=== PATIENT | female | born 1950 | race Caucasian/White ===

== ENCOUNTER 2023-12-23 08:00 | Day surgery (SDC) | payer MEDICARE, OTHER ==
[~2023-12-23] VITALS: Ht 167.6 cm; Wt 83.0 kg
[~2023-12-23 08:00] MED LIST: ATOR10 PO; Balanced Salt Epinephrine Irrigation Solution 500 mL IR SCH; HUMIRA40 MG/0.2 INJ; Lidocaine HCl/Pf 1% 5 ML VIAL XX SCH; METTREX2.5 PO; Moxifloxacin HCL 0.5 MG/0.1 ML 0.4MLSYR LEFTEYE SCH; NAPR220; NORT10 PO; NS 500 ML IV ONE; PHENYLEPHRINE\\TROPICAMIDE\\TETRACAINE OPHTHALMIC DILATING SOLN LEFTEYE PRN; Povidone-Iodine 450 DROP/30 ML Solution LEFTEYE SCH; Povidone-Iodine 450 DROP/30 ML Solution ONE; Triamcinolone Inj Susp 40 MG / ML 1ML Vial INJ SCH; Triamcinolone Inj Susp 40 MG / ML 1ML Vial ONE
[2023-12-23] MEDS ORDERED: VITAMIN D (08:46)
[2023-12-23] MEDS ORDERED: ASCO500 (08:46)
[2023-12-23] MEDS ORDERED: BUPR150ER PO (08:47)
[2023-12-23] MEDS ORDERED: CALCIUM (08:47)
[2023-12-23] MEDS ORDERED: OMEP20ER PO (08:48)
[2023-12-23] MEDS ORDERED: NS 500 ML IV ONE (08:55)
[2023-12-23] MEDS ORDERED: FentaNYL Citrate 50 MCG/ML 2 ML Injection ONE (09:02)
[2023-12-23] MEDS ORDERED: Ondansetron HCl 2 MG / ML 2ML Vial ONE (09:03)
[2023-12-23] MEDS ORDERED: Dexamethasone Sod Phos 10 MG/ML 1ML VIAL ONE (09:03)
[2023-12-23] MEDS ORDERED: Midazolam HCl 1MG / ML 2ML Vial ONE (09:03)
[2023-12-23] MEDS ORDERED: Tetracaine HCl 0.5% Opth Soln 15 ml RIGHTEYE ONE (09:32)
[2023-12-23 10:27] VITALS: BP 147/77
== END 2023-12-23 10:18 | disposition home or self-care (01) ==
LOC: ORSCSDS 08:00
PROVIDERS: Ophthalmology
PROC: 08RJ3JZ Replacement of Right Lens with Synthetic Substitute, Percutaneous Approach (ICD-10-PCS; principal; 2023-12-23 09:30)
DX: H25.13 Age-related nuclear cataract, bilateral (principal); H21.81 Floppy iris syndrome; K21.9 Gastro-esophageal reflux disease without esophagitis; Z79.899 Other long term (current) drug therapy
CPT/HCPCS: J1100; J2250; J2405; J3010; J3301; J7040; V2632

== ENCOUNTER 2023-12-28 07:53 | Day surgery (SDC) | payer MEDICARE, OTHER ==
[~2023-12-28] VITALS: Ht 167.6 cm; Wt 82.0 kg
[~2023-12-28 07:53] MED LIST changes: +ASCO500; +BUPR150ER PO; +CALCIUM; +OMEP20ER PO; -Povidone-Iodine 450 DROP/30 ML Solution ONE; +VITAMIN D
[2023-12-28] MEDS ORDERED: Lactated Ringer's 1,000 ML IV ONE (08:24)
[2023-12-28] MEDS ORDERED: FentaNYL Citrate 50 MCG/ML 2 ML Injection ONE (08:51)
[2023-12-28] MEDS ORDERED: Midazolam HCl 1MG / ML 2ML Vial ONE (08:52)
[2023-12-28] MEDS ORDERED: Tetracaine HCl 0.5% Opth Soln 15 ml LEFTEYE ONE (09:12)
[2023-12-28 09:38] VITALS: BP 140/70
--- NOTE | 2023-12-28 09:41 | NUR ---
12/28/23 0941 ROBERT ANDRADE 500CC OF NORMAL SALINE WAS USED FOR VISIT. A TOTAL OF 200CC WAS USED LEAVING 300CC.
== END 2023-12-28 09:49 | disposition home or self-care (01) ==
LOC: ORSCSDS 07:53
PROVIDERS: Ophthalmology
PROC: 08RK3JZ Replacement of Left Lens with Synthetic Substitute, Percutaneous Approach (ICD-10-PCS; principal; 2023-12-28 09:30)
DX: H25.812 Combined forms of age-related cataract, left eye (principal); Z96.1 Presence of intraocular lens; H52.4 Presbyopia; M06.9 Rheumatoid arthritis, unspecified; K21.9 Gastro-esophageal reflux disease without esophagitis; Z79.899 Other long term (current) drug therapy; F17.210 Nicotine dependence, cigarettes, uncomplicated
CPT/HCPCS: J2250; J3010; J3301; J7040; V2632